=== PATIENT | male | born 1975 | race Caucasian/White ===

== ENCOUNTER 2017-11-16 07:15 | Emergency (ER) | payer BC ==
[~2017-11-16] VITALS: Ht 170.2 cm; Wt 79.4 kg
[2017-11-16 07:54] VITALS: BP 156/78
== END 2017-11-16 09:01 | disposition home or self-care (01) ==
LOC: EDBD 07:15 → ER 07:15
DX: S52.225A Nondisplaced transverse fracture of shaft of left ulna, initial encounter for closed fracture (principal); S62.357 Nondisplaced fracture of shaft of fifth metacarpal bone, left hand; W22.8XXA Striking against or struck by other objects, initial encounter; Y93.67 Activity, basketball; Y99.8 Other external cause status; Y92.89 Other specified places as the place of occurrence of the external cause
CPT/HCPCS: 73110